=== PATIENT | female | born 1960 | race Caucasian/White ===

== ENCOUNTER 2017-08-16 10:02 | Emergency (ER) | payer OTHER ==
[~2017-08-16] VITALS: Ht 177.8 cm; Wt 83.0 kg
[2017-08-16 10:06] VITALS: TEMP 36.9; Ht 177.8 cm; Wt 83.0 kg
--- NOTE | 2017-08-16 10:17 | EMERGENCY ROOM VISIT NOTE ---
History Report prepared by Steveibmonet: Heena Riddle Under the Supervision of: Dr. Anthony Martinez M.D. First contact with patient: 10:11 Chief Complaint: URINARY SYMPTOMS Stated Complaint: BLADDER INFECTION Nursing Triage Summary: had a uti in may and today she woke up with sx of bladder pressure after voiding and then has blood in urine no dysuria and feels like she has to go every 10 min History of Present Illness The patient is a 57 year old female who presents to the Emergency Room with complaints of persistent urinary symptoms upon waking this morning. She complains of bladder pressure, hematuria and increased frequency. She denies any dysuria, back pain or fevers. She has experienced no abdominal pain or vaginal discharge. The patient notes she had a UTI back in May and her symptoms feel similar, but slightly different today. Source of History: patient Onset: earlier this morning Position: pelvis (urinary system) Timing: other (persistent) Associated Symptoms: No fevers, No abdominal pain, No back pain Review of Systems All systems have been listed, reviewed, and are negative other than those previously mentioned. Please see Additional Medical History Sheet. Past Medical & Surgical Medical Problems: (1) History of non-Hodgkin's lymphoma (2) Kidney stone (3) Migraine (4) Non-Hodgkin's lymphoma (5) Upper back pain Family History Diabetes mellitus FH: heart disease Social History Smoking Status: Current Every Day Smoker Alcohol Use: none Drug Use: none Marital Status: single Housing Status: lives with family Occupation Status: employed Current/Historical Medications Scheduled Nitrofurantoin Monohyd Macro (Macrobid), 100 MG PO BID Allergies Coded Allergies: Chlorpheniramine (Verified Allergy, Severe, lips swell, 08/16/17) Ibuprofen (Verified Allergy, Severe, lips swell, 08/16/17) Pseudoephedrine (Verified Allergy, Severe, lips swell, 08/16/17) Sulfa Drugs (Verified Allergy, Unknown, 'entire body swollen and red minus throat', 08/16/17) Physical Exam Vital Signs Date Time Temp Pulse Resp B/P (MAP) Pulse Ox O2 Delivery O2 Flow Rate FiO2 08/16/17 11:51 63 18 142/86 98 08/16/17 10:06 36.9 85 16 142/94 97 Physical Exam GENERAL: Patient awake, alert, oriented x 3. Patient follows commands. Patient does not appear toxic. Patient is adequately hydrated and well- nourished. SKIN: No erythema, pallor, cyanosis or rash HEENT: Normal head, pupils equal, reactive to light and accommodation. Oral cavity and posterior pharynx appear normal. Neck: Without adenopathy, no neck vein distention. ABDOMEN: Soft, nontender. No CVA tenderness. No masses, no rebound, no hepatomegaly or splenomegaly. NEUROLOGIC: Cranial nerves II-XII within normal limits. No gross motor sensory function deficits. Medical Decision & Procedures Laboratory Results Test 08/16/17 10:10 Urine Color BROWN Urine Appearance CLOUDY (CLEAR) Urine pH 5.5 (4.5-7.5) Urine Specific [place] 1.025 (1.000-1.030) Urine Protein 2+ (NEG) Urine Glucose (UA) NEG (NEG) Urine Ketones NEG (NEG) Urine Occult Blood 3+ (NEG) Urine Nitrite NEG (NEG) Urine Bilirubin NEG (NEG) Urine Urobilinogen NEG (NEG) Urine Leukocyte Esterase MODERATE (NEG) Urine RBC >30 /hpf (0-4) Urine WBC >30 /hpf (0-5) Urine Epithelial Cells 5-10 /lpf (0-5) Urine Bacteria 1+ (NEG) Laboratory results as stated above per my review. Medications Administered Medications (Trade) Dose Ordered Sig/Itzel Route Start Time Stop Time Status Last Admin Dose Admin Nitrofurantoin Macrocrystals (Macrobid Cap) 200 mg ONE ONCE PO 08/16/17 11:30 08/16/17 11:32 DC 08/16/17 11:47 200 MG Phenazopyridine HCl (Pyridium Tab) 200 mg NOW STAT PO 08/16/17 11:28 08/16/17 11:32 DC 08/16/17 11:47 200 MG Phenazopyridine HCl (Phenazopyridine HCl 200MG Home Pack) 1 homepack UD ONCE PO 08/16/17 11:30 08/16/17 11:32 DC 08/16/17 11:47 1 HOMEPACK ED Course 1011: Past medical records reviewed. The patient was evaluated in room B11B. A complete history and physical examination was performed. 1126: I reevaluated the patient. She is resting comfortably. I discussed her test results and discharge instructions and she verbalized complete understanding and agreement. 1128: Pyridium 200 mg PO. 1130: Phenazopyridine HCl 200 mg 1 homepack PO, Macrobid 200 mg PO. Medical Decision The differential diagnoses considered include UTI, kidney stone and pyelonephritis. 57-year-old female with urinary type symptoms similar to what she has experienced multiple times in the past. The patient denies any vaginal discharge. She has no flank pain. She has no fever or chills. Urinalysis is consistent with a UTI. The patient is allergic to sulfa. The patient was placed on Macrobid and Pyridium. Medication Reconcilliation Current Medication List: was personally reviewed by me Blood Pressure Screening Patient's blood pressure: Elevated blood pressure Blood pressure disposition: Referred to PCP Impression Primary Impression: Urinary tract infection Scribe Attestation The scribe's documentation has been prepared under my direction and personally reviewed by me in its entirety. I confirm that the note above accurately reflects all work, treatment, procedures, and medical decision making performed by me. Departure Information Dispostion Home / Self-Care Prescriptions Nitrofurantoin Monohyd Macro (MACROBID) 100 Mg Cap 100 MG PO BID, #18 CAP Prov: Anthony Martinez M.D. 08/16/17 Referrals Honorio Schmitt III, M.D. (PCP) Patient Instructions My [facility] Additional Instructions 1 Macrobid twice a day for 10 days. 1 Pyridium 3 times a day. Recheck the urine in 2 weeks.
[2017-08-16 10:24] LABS: MANUAL MICROSCOPIC REQUIRED? YES; URINE APPEARANCE CLOUDY (CLEAR); URINE COLOR BROWN; URINE NITRITE NEG (NEG); URINE PH 5.5 (4.5-7.5); URINE SPECIFIC GRAVITY 1.025 (1.000-1.030); UROBILINOGEN NEG (NEG)
[2017-08-16 10:27] LABS: REVIEW REQ? NO
[2017-08-16 10:30] LABS: URINE BILIRUBIN NEG (NEG)
[2017-08-16 10:33] LABS: URINE BACTERIA 1+ (NEG); URINE RBC >30 /hpf (0-4); URINE WBC >30 /hpf (0-5); ZZUR CULT IF INDIC CLEAN CATCH YES
[2017-08-16] MEDS ORDERED: PHENAZOPYRIDINE HCL 200 MG TAB PO STA (11:28)
[2017-08-16] MEDS ORDERED: PHENAZOPYRIDINE HOME PACK 200 MG VIAL PO ONE (11:30)
[2017-08-16] MEDS ORDERED: NITROFURANTOIN MONOHYDRATE 100 MG CAP PO ONE (11:30)
[2017-08-16] MEDS ORDERED: NITR1CAP16 PO (11:33)
[2017-08-16 11:51] VITALS: BP 142/86; PULSE 63; O2SAT 98
[2017-08-16] MEDS ORDERED: NITR-5 PO (17:20)
== END 2017-08-16 11:52 | disposition home or self-care (01) ==
LOC: C.EDB 10:04
DX: N39.0 Urinary tract infection, site not specified (principal); F17.200 Nicotine dependence, unspecified, uncomplicated; Z85.72 Personal history of non-Hodgkin lymphomas; Z83.3 Family history of diabetes mellitus; Z82.49 Family history of ischemic heart disease and other diseases of the circulatory system

== ENCOUNTER 2017-08-19 15:03 | Emergency (ER) | payer OTHER ==
[~2017-08-19] VITALS: Ht 177.8 cm; Wt 83.8 kg
[~2017-08-19 15:03] MED LIST: NITR-5 PO; NITR1CAP16 PO
[2017-08-19 15:07] VITALS: TEMP 36.7; Ht 177.8 cm; Wt 83.8 kg
--- NOTE | 2017-08-19 15:44 | EMERGENCY ROOM VISIT NOTE ---
History Report prepared by Domenic: Jasmeet Kim Under the Supervision of: Jan ZaldivarO. First contact with patient: 15:17 Chief Complaint: URINARY SYMPTOMS Stated Complaint: DX WITH BLADDER INFECTION 08/16, WORSENING SYMPTOM History of Present Illness The patient is a 57 year old female who presents to the Emergency Room with complaints of worsening bladder discomfort that began 3 day ago. She states that after she empties her bladder, her bladder feels "like it is going to burst ". She states that movement worsens the pain. She states associated symptoms of intermittent hematuria and constipation. She denies leg swelling, rashes, back pain, recent injuries, fevers, chills, and chest pain. Patient notes that she was started on antibiotics 3 days ago that did not resolve the symptoms. She denies having a history of bladder infections in the kidneys. She was put on Macrobid and Pyridium for current urinary problems. Source of History: patient Onset: 3 days ago Position: other (Bladder) Timing: worsening Modifying Factors (Worsening): movement Associated Symptoms: No fevers, No chills Note: She has symptoms of hematuria and constipation. She denies rashes, recent injuries, and leg swelling. Review of Systems See HPI for pertinent positives & negatives. A total of 10 systems reviewed and were otherwise negative. Past Medical & Surgical Medical Problems: (1) History of non-Hodgkin's lymphoma (2) Kidney stone (3) Migraine (4) Non-Hodgkin's lymphoma (5) Upper back pain Family History Diabetes mellitus FH: heart disease Social History Smoking Status: Current Every Day Smoker Alcohol Use: none Drug Use: none Marital Status: single Housing Status: lives with family Occupation Status: employed Current/Historical Medications Scheduled Cephalexin (Keflex), 1 CAP PO BID Nitrofurantoin Monohyd Macrocr (Macrobid), 100 MG PO BID Allergies Coded Allergies: Chlorpheniramine (Verified Allergy, Severe, lips swell, 08/19/17) Ibuprofen (Verified Allergy, Severe, lips swell, 08/19/17) Pseudoephedrine (Verified Allergy, Severe, lips swell, 08/19/17) Sulfa Drugs (Verified Allergy, Unknown, 'entire body swollen and red minus throat', 08/19/17) Physical Exam Vital Signs Date Time Temp Pulse Resp B/P (MAP) Pulse Ox O2 Delivery O2 Flow Rate FiO2 08/19/17 18:29 70 18 173/93 98 08/19/17 17:29 75 18 166/94 98 Room Air 08/19/17 15:07 36.7 93 16 130/92 98 Room Air Physical Exam GENERAL: alert, well appearing, well nourished, no distress, non-toxic EYE EXAM: normal conjunctiva, PERRL and EOM's grossly intact OROPHARYNX: no exudate, no erythema, lips, buccal mucosa, and tongue normal and mucous membranes are moist NECK: supple, no nuchal rigidity, no adenopathy, non-tender LUNGS: Clear to auscultation. Normal chest wall mechanics HEART: no murmurs, S1 normal and S2 normal ABDOMEN: abdomen soft, mild suprapubic tenderness, normo-active bowel sounds, no masses, no rebound or guarding. BACK: Back is symmetrical on inspection and there is no deformity, no midline tenderness, no CVA tenderness. SKIN: no rashes and no bruising UPPER EXTREMITIES: upper extremities are grossly normal. LOWER EXTREMITIES: No pitting edema. NEURO EXAM: Normal sensorium, cranial nerves II-XII grossly intact, normal speech, no gross weakness of arms, no gross weakness of legs. No drift. Finger to nose intact. Gross sensation intact. Medical Decision & Procedures ER Provider Diagnostic Interpretation: ABD/PELVIS IV CONTRAST ONLY CLINICAL HISTORY: 57 years-old Female presenting with lower abd pain, recent UTI, persistent urinary sx, possible history of lymphoma. TECHNIQUE: Multidetector CT of the abdomen and pelvis was performed after the administration of intravenous contrast. IV contrast: 92 mL of Optiray 320. A dose lowering technique was used consistent with the principles of ALARA (as low as reasonably achievable). COMPARISON: 03/25/2015. CT DOSE (mGy.cm): The estimated cumulative dose is 519.81 mGy.cm. 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 Lung bases: Minimal basilar opacities, likely atelectasis. Normal heart size. No pericardial or pleural effusion. Liver: Normal morphology. No liver lesion. Patent hepatic vasculature. Biliary: No intrahepatic or extrahepatic biliary ductal dilatation. Normal gallbladder. Pancreas: Normal. Spleen: Subcentimeter hypodensity in the spleen may represent a small hemangioma or hamartoma. Adrenal glands: Normal. Kidneys and ureters: Punctate nonobstructing calculus in the interpolar region of the left kidney (series 3 image 147). Several subcentimeter hypodensities noted in the right kidney likely simple cysts. No hydronephrosis. Apart from the presence of cysts, no abnormal parenchymal enhancement. No perinephric fat stranding or fluid collection. Ureters normal. Bladder: Mild circumferential bladder wall thickening. No perivesicular fat stranding. Pelvic organs: Uterus normal. Persistent linear soft tissue band emanating from the posterior aspect of the lower uterine segment to the anterior mid rectal wall may represent postsurgical change/adhesion or less likely a prior fistula. A corpus luteum may be present in the right ovary. Calcification noted in the left ovary. Bowel: Mild stool burden throughout normal caliber colon. The appendix is normal. No bowel obstruction. Peritoneal cavity: No free fluid or intraperitoneal gas. Lymph nodes: No enlarged lymph nodes in the abdomen or pelvis. Vasculature: Atherosclerosis of the normal caliber abdominal aorta. IVC patent. Abdominal wall: Normal. Musculoskeletal: Degenerative changes of the spine. IMPRESSION: 1. Mild circumferential bladder wall thickening could suggest cystitis. Correlate with urinalysis. No evidence of upper tract involvement or pyelonephritis. 2. No lymphadenopathy. Electronically signed by: Agapito Copeland M.D. 08/19/2017 5:31 PM Dictated Date/Time: 08/19/2017 5:14 PM Laboratory Results 08/19/17 15:40 Red Blood Count 4.31, Mean Corpuscular Volume 92.3, Mean Corpuscular Hemoglobin 31.1, Mean Corpuscular Hemoglobin Concent 33.7, Mean Platelet Volume 11.0, Neutrophils (%) (Auto) 69.8, Lymphocytes (%) (Auto) 18.4, Monocytes (%) (Auto) 8.6, Eosinophils (%) (Auto) 2.8, Basophils (%) (Auto) 0.1, Neutrophils # (Auto) 5.27, Lymphocytes # (Auto) 1.39, Monocytes # (Auto) 0.65, Eosinophils # (Auto) 0.21, Basophils # (Auto) 0.01 08/19/17 15:40 Test 08/19/17 15:40 08/19/17 15:50 White Blood Count 7.55 K/uL (4.8-10.8) Red Blood Count 4.31 M/uL (4.2-5.4) Hemoglobin 13.4 g/dL (12.0-16.0) Hematocrit 39.8 % (37-47) Mean Corpuscular Volume 92.3 fL (80-100) Mean Corpuscular Hemoglobin 31.1 pg (25-34) Mean Corpuscular Hemoglobin Concent 33.7 g/dl (32-36) Platelet Count 244 K/uL (130-400) Mean Platelet Volume 11.0 fL (7.4-10.4) Neutrophils (%) (Auto) 69.8 % Lymphocytes (%) (Auto) 18.4 % Monocytes (%) (Auto) 8.6 % Eosinophils (%) (Auto) 2.8 % Basophils (%) (Auto) 0.1 % Neutrophils # (Auto) 5.27 K/uL (1.4-6.5) Lymphocytes # (Auto) 1.39 K/uL (1.2-3.4) Monocytes # (Auto) 0.65 K/uL (0.11-0.59) Eosinophils # (Auto) 0.21 K/uL (0-0.5) Basophils # (Auto) 0.01 K/uL (0-0.2) RDW Standard Deviation 47.3 fL (36.4-46.3) RDW Coefficient of Variation 13.9 % (11.5-14.5) Immature Granulocyte % (Auto) 0.3 % Immature Granulocyte # (Auto) 0.02 K/uL (0.00-0.02) Anion Gap 5.0 mmol/L (3-11) Est Creatinine Clear Calc Drug Dose 112.5 ml/min Estimated GFR () 114.2 Estimated GFR (Non- 98.6 BUN/Creatinine Ratio 25.0 (10-20) Calcium Level 8.7 mg/dl (8.5-10.1) Total Bilirubin 0.3 mg/dl (0.2-1) Aspartate Amino Transf (AST/SGOT) 41 U/L (15-37) Alanine Aminotransferase (ALT/SGPT) 42 U/L (12-78) Alkaline Phosphatase 75 U/L (45-117) Total Protein 6.8 gm/dl (6.4-8.2) Albumin 3.6 gm/dl (3.4-5.0) Globulin 3.2 gm/dl (2.5-4.0) Albumin/Globulin Ratio 1.1 (0.9-2) Urine Color DK YELLOW Urine Appearance CLEAR (CLEAR) Urine pH 5.0 (4.5-7.5) Urine Specific [place] 1.022 (1.000-1.030) Urine Protein NEG (NEG) Urine Glucose (UA) NEG (NEG) Urine Ketones NEG (NEG) Urine Occult Blood 1+ (NEG) Urine Nitrite NEG (NEG) Urine Bilirubin NEG (NEG) Urine Urobilinogen NEG (NEG) Urine Leukocyte Esterase SMALL (NEG) Urine WBC (Auto) 10-30 /hpf (0-5) Urine RBC (Auto) 0-4 /hpf (0-4) Urine Hyaline Casts (Auto) 1-5 /lpf (0-5) Urine Epithelial Cells (Auto) >30 /lpf (0-5) Urine Bacteria (Auto) NEG (NEG) Urine Yeast (Auto) (NONE PRSENT) Date/Time Source Procedure Growth Status 08/19/17 15:50 Urine , Clean Catch Urine Culture - Final MORE THAN THREE TYPES OF ORGANISMS MS... Complete Laboratory results per my review. Medications Administered Medications (Trade) Dose Ordered Sig/Itzel Route Start Time Stop Time Status Last Admin Dose Admin Ceftriaxone Sodium (Rocephin Inj) 1 gm NOW STAT IV 08/19/17 17:36 08/19/17 17:37 DC 08/19/17 17:54 1 GM Phenazopyridine HCl (Phenazopyridine HCl 200MG Home Pack) 1 homepack UD ONCE PO 08/19/17 18:00 08/19/17 18:01 DC 08/19/17 18:00 1 HOMEPACK Ketorolac Tromethamine (Toradol Inj) 15 mg NOW STAT IV 08/19/17 17:46 08/19/17 17:48 DC 08/19/17 17:52 15 MG ED Course 1530: The patient was evaluated in room C9. A complete history and physical exam was performed. 1545: Ioversol 100ml IV Medical Decision Differential diagnosis: Etiologies such as renal colic, appendicitis, diverticulitis, mesenteric ischemia, aortic pathology, infections, inflammatory bowel disease, PUD, biliary pathology, UTI, as well as others were entertained. Patient well-appearing here despite complaints, vital signs stable. No evidence of obstructive uropathy, renal dysfunction, pyelonephritis, doubt vascular etiology. No evidence of concurrent GI pathology. Discussed with patient changing antibiotics, symptoms watch return for, follow-up with family doctor, use of Pyridium, continued hydration, she verbalized understanding was agreeable with plan. Medication Reconcilliation Current Medication List: was personally reviewed by me Blood Pressure Screening Patient's blood pressure: Normal blood pressure Blood pressure disposition: Did not require urgent referral Impression Primary Impression: Dysuria Additional Impressions: Lower abdominal pain Hematuria Scribe Attestation The scribe's documentation has been prepared under my direction and personally reviewed by me in its entirety. I confirm that the note above accurately reflects all work, treatment, procedures, and medical decision making performed by me. Departure Information Dispostion Home / Self-Care Prescriptions Cephalexin (KEFLEX) 500 Mg Cap 1 CAP PO BID for 7 Days, #14 CAP Prov: Blossom Ortiz, DO 08/19/17 Referrals Honorio Schmitt III, M.D. (PCP) Patient Instructions My [facility] Additional Instructions Please follow up with your family doctor. Please stop taking the Macrobid and begin taking the other antibiotic as prescribed. You may continue using the Pyridium as needed. Please make sure you're drinking plenty of water. Please follow-up with your BOX FABRICATOR as needed regarding the ovarian cyst and possible postop changes related to your prior history of endometriosis. These make sure you're getting plenty of fiber in your diet to help limit any constipation issues. If you develop any worsening abdominal pain, develop back pain, fevers or chills, vomiting, dizziness, or unable to urinate, or you've any other new concerns, please return the emergency room. Problem Qualifiers Additional Impressions: Hematuria Hematuria type: unspecified type Qualified Codes: R31.9 - Hematuria, unspecified
[2017-08-19] MEDS ORDERED: OPTIRAY 320 IV PRN (15:45)
[2017-08-19 15:58] LABS: BASO % 0.1 %; BASO ABS # 0.01 K/uL (0-0.2); EOS % 2.8 %; EOS ABS # 0.21 K/uL (0-0.5); HEMATOCRIT 39.8 % (37-47); HEMOGLOBIN 13.4 g/dL (12.0-16.0); IG# 0.02 K/uL (0.00-0.02); LYMPH % 18.4 %; LYMPH ABS # 1.39 K/uL (1.2-3.4); MEAN CELL VOLUME 92.3 fL (80-100); MEAN CORPUSCULAR HEMOGLOBIN 31.1 pg (25-34); MEAN CORPUSCULAR HGB CONC 33.7 g/dl (32-36); MONO % 8.6 %; MONO ABS # 0.65 K/uL (0.11-0.59); NEUT % 69.8 %; NEUT ABS # 5.27 K/uL (1.4-6.5); PLATELET COUNT 244 K/uL (130-400); RED CELL DISTRIBUTION WIDTH CV 13.9 % (11.5-14.5); RED CELL DISTRIBUTION WIDTH SD 47.3 fL (36.4-46.3); WHITE BLOOD COUNT 7.55 K/uL (4.8-10.8)
[2017-08-19 16:20] LABS: ALBUMIN 3.6 gm/dl (3.4-5.0); CALCIUM 8.7 mg/dl (8.5-10.1); CREATININE 0.65 mg/dl (0.60-1.20); POTASSIUM 3.8 mmol/L (3.5-5.1)
[2017-08-19 16:22] LABS: TOTAL PROTEIN 6.8 gm/dl (6.4-8.2)
--- NOTE | 2017-08-19 17:33 | DIAGNOSTIC IMAGING REPORT ---
ABD/PELVIS IV CONTRAST ONLY CLINICAL HISTORY: 57 years-old Female presenting with lower abd pain, recent UTI, persistent urinary sx, possible history of lymphoma. TECHNIQUE: Multidetector CT of the abdomen and pelvis was performed after the administration of intravenous contrast. IV contrast: 92 mL of Optiray 320. A dose lowering technique was used consistent with the principles of ALARA (as low as reasonably achievable). COMPARISON: 03/25/2015. CT DOSE (mGy.cm): The estimated cumulative dose is 519.81 mGy.cm. 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 Lung bases: Minimal basilar opacities, likely atelectasis. Normal heart size. No pericardial or pleural effusion. Liver: Normal morphology. No liver lesion. Patent hepatic vasculature. Biliary: No intrahepatic or extrahepatic biliary ductal dilatation. Normal gallbladder. Pancreas: Normal. Spleen: Subcentimeter hypodensity in the spleen may represent a small hemangioma or hamartoma. Adrenal glands: Normal. Kidneys and ureters: Punctate nonobstructing calculus in the interpolar region of the left kidney (series 3 image 147). Several subcentimeter hypodensities noted in the right kidney likely simple cysts. No hydronephrosis. Apart from the presence of cysts, no abnormal parenchymal enhancement. No perinephric fat stranding or fluid collection. Ureters normal. Bladder: Mild circumferential bladder wall thickening. No perivesicular fat stranding. Pelvic organs: Uterus normal. Persistent linear soft tissue band emanating from the posterior aspect of the lower uterine segment to the anterior mid rectal wall may represent postsurgical change/adhesion or less likely a prior fistula. A corpus luteum may be present in the right ovary. Calcification noted in the left ovary. Bowel: Mild stool burden throughout normal caliber colon. The appendix is normal. No bowel obstruction. Peritoneal cavity: No free fluid or intraperitoneal gas. Lymph nodes: No enlarged lymph nodes in the abdomen or pelvis. Vasculature: Atherosclerosis of the normal caliber abdominal aorta. IVC patent. Abdominal wall: Normal. Musculoskeletal: Degenerative changes of the spine. IMPRESSION: 1. Mild circumferential bladder wall thickening could suggest cystitis. Correlate with urinalysis. No evidence of upper tract involvement or pyelonephritis. 2. No lymphadenopathy. Electronically signed by: Agapito Copeland M.D. 08/19/2017 5:31 PM Dictated Date/Time: 08/19/2017 5:14 PM
[2017-08-19] MEDS ORDERED: CEFTRIAXONE SOD INJ 1 GM ADDVIAL IV STA (17:36)
[2017-08-19] MEDS ORDERED: KETOROLAC TROMETHAMINE 30 MG/ML VIAL IV STA (17:46)
[2017-08-19] MEDS ORDERED: CEPH-571 PO (17:57)
[2017-08-19] MEDS ORDERED: PHENAZOPYRIDINE HOME PACK 200 MG VIAL PO ONE (18:00)
[2017-08-19 18:29] VITALS: BP 173/93; PULSE 70; O2SAT 98
== END 2017-08-19 18:31 | disposition home or self-care (01) ==
LOC: C.EDB 15:04 → C.EDC 18:31
DX: R30.0 Dysuria (principal); R10.9 Unspecified abdominal pain; R31.9 Hematuria, unspecified; Z83.3 Family history of diabetes mellitus; Z82.49 Family history of ischemic heart disease and other diseases of the circulatory system; F17.200 Nicotine dependence, unspecified, uncomplicated

== ENCOUNTER 2020-05-27 09:42 | Observation (INO) ==
[2020-05-27] MEDS ORDERED: SODIUM CHLORIDE 0.9% 1000ML 1,000 ML IV ONE (10:12)
--- NOTE | 2020-05-27 10:24 | Emergency Department Note ---
Impression & Plan Appendicitis, Lower abdominal pain, Decreased appetite ED Provider Note NAME: FERMÍN ROY AGE: 59 SEX: F ARRIVES VIA: Walk-In INFORMANT: Patient, ED PROVIDER(S): Alex Gates MD CHIEF COMPLAINT: Abdominal pain PLAN: Disposition: Admit MEDICAL DECISION MAKING: The patient is a pleasant 59-year-old woman with a past medical history of non- Hodgkin's lymphoma, 1 year in remission who presents emergency department for evaluation of low abdominal pain in setting being seen in the emergency department yesterday for back pain with CT performed that demonstrated dilated fluid-filled appendix that was suspicious for appendicitis however at that time the patient's exam was not convincing of appendicitis and so recommendation was for admission for IV antibiotics however the patient did not want to be admitted and needed to take care of things at home and so was discharged with oral antibiotics with plan for follow-up but she reports calling the office and unable to get through and so presents emergency department and relates that she would be agreeable for admission if that is the recommendation. Since being discharged yesterday she reports mild lower abdominal discomfort and bloating but denies any severe pain. She denies any nausea, vomiting, diarrhea, urinary symptoms. She reports that she had "looked up the symptoms of asymptomatic appendicitis and feels she may have had these over the past couple of weeks with generalized malaise and decreased appetite. On arrival she is no acute distress, afebrile stable vital signs. On exam the patient has mild lower abdominal discomfort but no discrete tenderness in the right lower quadrant. Records ordered and patient's presentation was reviewed with general surgery PAChan Cruz, Mckayla Snyder, who evaluated the patient at the bedside and decision was made to proceed with admission for surgery. 2 g of cefoxitin were ordered per general surgery request. Additionally rapid COVID-19 test was performed and was negative. WBC, H/H complaints within normal limits. Chemistry without acidosis. Electrolytes and LFTs unremarkable. Lipase within normal limits. Admitted to the OR. Triage Nursing notes reviewed and agree them. Prior medical records reviewed Vital Signs: reviewed and remarkable for no significant abnormalities Differential diagnosis: Appendicitis, ovarian cyst, ovarian torsion, ectopic , TOA, PID, infections, diverticulitis, UTI, obstruction, mesenteric ischemia, aortic pathology, inflammatory bowel disease, renal colic, PUD, pancreatitis, biliary pathology, hernia, volvulus, constipation, as well as other pathologies. ER treatment provided: See below. Diagnostics interpreted by me: Cardiac Monitoring: An order for continuous cardiac monitoring was placed and demonstrated An order for continuous cardiac monitoring was placed and demonstrated sinus bradycardia, 54 bpm, no ectopy. Laboratory studies: See below Consultation(s): general surgery, Mckayla Snyder PAC, with Dr. Vogt. HPI: The patient is a pleasant 59-year-old woman with a past medical history of non-Hodgkin's lymphoma, 1 year in remission who presents emergency department for evaluation of low abdominal pain in setting being seen in the emergency department yesterday for back pain with CT performed that demonstrated dilated fluid-filled appendix that was suspicious for appendicitis however at that time the patient's exam was not convincing of appendicitis and so recommendation was for admission for IV antibiotics however the patient did not want to be admitted and needed to take care of things at home and so was discharged with oral antibiotics with plan for follow-up but she reports calling the office and unable to get through and so presents emergency department and relates that she would be agreeable for admission if that is the recommendation. Since being discharged yesterday she reports mild lower abdominal discomfort and bloating but denies any severe pain. She denies any nausea, vomiting, diarrhea, urinary symptoms. She reports that she had "looked up the symptoms of asymptomatic appendicitis and feels she may have had these over the past couple of weeks with generalized malaise and decreased appetite. ROS: See above HPI for pertinent positives & negatives. A total of 10 systems reviewed and were otherwise negative. PAST MEDICAL HISTORY:See Below PAST SURGICAL HISTORY:See Below FAMILY HISTORY:See Below SOCIAL HISTORY:See Below HOME MEDICATIONS:See Below ALLERGIES:See Below VITALS:See Below PHYSICAL EXAMINATION: GENERAL: Awake, alert, well-appearing, in no distress HENT: Normocephalic, atraumatic. Oropharynx with dry mucous membranes and otherwise unremarkable. EYES: Normal conjunctiva. Sclera non-icteric. NECK: Supple. No nuchal rigidity. FROM. No JVD. RESPIRATORY: Clear to auscultation. CARDIAC: Regular rate, normal rhythm. Extremities warm and well perfused. Pulses equal. ABDOMEN: Soft, non-distended. Mild lower abdominal discomfort without discrete tenderness to palpation. No rebound or guarding. No masses. RECTAL: Deferred. MUSCULOSKELETAL: Chest examination reveals no tenderness. The back is symmetrical on inspection without obvious abnormality. There is no CVA tenderness to palpation. No joint edema. LOWER EXTREMITIES: Calves are equal size bilaterally and non-tender. No edema. No discoloration. NEURO: Normal sensorium. No sensory or motor deficits noted. SKIN: No rash or jaundice noted. Alex Gates MD Past Med/Surg History Medical History Hypertension not treated Kidney stone Lymphadenopathy Non-Hodgkin's lymphoma (09/19/12) Smoker Social History Smoking Status: Current every day smoker Tobacco Type: Cigarettes Preferred Language: Palauan Feels Safe at Home: Yes Allergies Allergies Allergy/AdvReac Type Severity Reaction Status Date / Time chlorpheniramine Allergy Severe lips swell Verified 05/27/20 12:00 Sulfa (Sulfonamide Allergy Unknown 'entire Verified 05/27/20 12:00 Antibiotics) body swollen and red minus throat' meperidine [From Demerol] AdvReac Severe sick Unverified 05/27/20 12:00 Home Meds Previous Rx's Medication Instructions Recorded amoxicillin-pot clavulanate 1 tab PO BID #14 tab 05/26/20 [Augmentin] Results & Data (ED) Vital Signs Vital Signs - 24 hr 05/27/20 09:56 05/27/20 11:02 05/27/20 11:49 Temperature 36.8 C Temperature Source Oral Pulse Rate 83 Pulse Rate [Left Finger] Pulse Rhythm [Left Finger] Pulse Strength [Left Finger] Respiratory Rate 18 Respiratory Effort / Characteristics Non-Labored Spontaneous Respiratory Depth Normal Respiratory Pattern Regular Blood Pressure 174/105 H Blood Pressure [Right Arm] Blood Pressure Mean 128 Blood Pressure Mean [Right Arm] Blood Pressure Position Sitting Blood Pressure Position [Right Arm] Pulse Oximetry 97 95 Oxygen Delivery Method Room Air Room Air Room Air Sepsis Recent Fever Within 48 Hours No Sepsis New/Unexplained Change in Mental Status N/A Sepsis Action Taken by Nursing No Action Required 05/27/20 12:02 Temperature 36.8 C Temperature Source Oral Pulse Rate Pulse Rate [Left Finger] 60 Pulse Rhythm [Left Finger] Regular Pulse Strength [Left Finger] Normal Respiratory Rate 20 Respiratory Effort / Characteristics Non-Labored Spontaneous Respiratory Depth Normal Respiratory Pattern Regular Blood Pressure Blood Pressure [Right Arm] 186/100 H Blood Pressure Mean Blood Pressure Mean [Right Arm] 128 Blood Pressure Position Blood Pressure Position [Right Arm] Sitting Pulse Oximetry 99 Oxygen Delivery Method Room Air Sepsis Recent Fever Within 48 Hours Sepsis New/Unexplained Change in Mental Status Sepsis Action Taken by Nursing Laboratory Data Attestation: I reviewed the patient's lab results. Result diagrams: 05/27/20 11:00 05/27/20 11:00 Lab Results 05/27/20 05/27/20 05/27/20 Range/Units 11:00 11:00 11:24 WBC 6.87 (4.8-10.8) K/uL RBC 4.77 (4.2-5.4) M/uL Hgb 14.5 (12.0-16.0) g/dL Hct 43.5 (37-47) % MCV 91.2 (80-100) fL MCH 30.4 (25-34) pg MCHC 33.3 (32-36) g/dL RDW Std Deviation 46.6 H (36.4-46.3) fL RDW Coeff of Christal 13.9 (11.5-14.5) % Plt Count 259 (130-400) K/uL MPV 10.2 (7.4-10.4) fL Immature Gran % (Auto) 0.1 % Neut % (Auto) 71.9 % Lymph % (Auto) 19.7 % [place] % (Auto) 6.0 % Eos % (Auto) 2.2 % Baso % (Auto) 0.1 % Neut # (Auto) 4.94 (1.4-6.5) K/uL Lymph # (Auto) 1.35 (1.2-3.4) K/uL [place] # (Auto) 0.41 (0.11-0.59) K/uL Eos # (Auto) 0.15 (0-0.5) K/uL Baso # (Auto) 0.01 (0-0.2) K/uL Immature Gran # (Auto) 0.01 (0.00-0.02) K/uL Sodium 142 (136-145) mmol/L Potassium 4.0 (3.5-5.1) mmol/L Chloride 111 H (98-107) mmol/L Carbon Dioxide 28 (21-32) mmol/L Anion Gap 3.0 (3-11) BUN 15 (7-18) mg/dl Creatinine 0.67 (0.6-1.2) mg/dl Est Cr Clr Drug Dosing 106.2 ml/min Est GFR ( Amer) 111.5 Est GFR (Non-Af Amer) 96.2 BUN/Creatinine Ratio 22.4 H (10-20) Glucose 86 (70-99) mg/dl Calcium 9.1 (8.5-10.1) mg/dl Total Bilirubin 0.4 (0.2-1) mg/dl AST 13 L (15-37) U/L ALT 12 (12-78) U/L Alkaline Phosphatase 77 (45-117) U/L Total Protein 6.9 (6.4-8.2) gm/dl Albumin 3.4 (3.4-5.0) gm/dl Globulin 3.5 (2.5-4.0) gm/dl Albumin/Globulin Ratio 1.0 (0.9-2) Lipase 88 (73-393) U/L COVID-19 Eval [facility] SARS-CoV-2, RNA, NAAT (NEGATIVE) 05/27/20 Range/Units 11:24 WBC (4.8-10.8) K/uL RBC (4.2-5.4) M/uL Hgb (12.0-16.0) g/dL Hct (37-47) % MCV (80-100) fL MCH (25-34) pg MCHC (32-36) g/dL RDW Std Deviation (36.4-46.3) fL RDW Coeff of Christal (11.5-14.5) % Plt Count (130-400) K/uL MPV (7.4-10.4) fL Immature Gran % (Auto) % Neut % (Auto) % Lymph % (Auto) % [place] % (Auto) % Eos % (Auto) % Baso % (Auto) % Neut # (Auto) (1.4-6.5) K/uL Lymph # (Auto) (1.2-3.4) K/uL [place] # (Auto) (0.11-0.59) K/uL Eos # (Auto) (0-0.5) K/uL Baso # (Auto) (0-0.2) K/uL Immature Gran # (Auto) (0.00-0.02) K/uL Sodium (136-145) mmol/L Potassium (3.5-5.1) mmol/L Chloride (98-107) mmol/L Carbon Dioxide (21-32) mmol/L Anion Gap (3-11) BUN (7-18) mg/dl Creatinine (0.6-1.2) mg/dl Est Cr Clr Drug Dosing ml/min Est GFR ( Amer) Est GFR (Non-Af Amer) BUN/Creatinine Ratio (10-20) Glucose (70-99) mg/dl Calcium (8.5-10.1) mg/dl Total Bilirubin (0.2-1) mg/dl AST (15-37) U/L ALT (12-78) U/L Alkaline Phosphatase (45-117) U/L Total Protein (6.4-8.2) gm/dl Albumin (3.4-5.0) gm/dl Globulin (2.5-4.0) gm/dl Albumin/Globulin Ratio (0.9-2) Lipase (73-393) U/L COVID-19 Eval Order SARS-CoV-2, RNA, NAAT NEGATIVE (NEGATIVE) Administered Medications Sodium Chloride (Nss 1000ml) 1,000 mls @ 50 mls/hr IV .Q20H ALONSO Stop: 06/26/20 15:14 Last Admin: 05/27/20 15:24 Dose: 50 mls/hr Documented by: [id number] Discontinued Medications Acetaminophen (Acetaminophen 1000 Mg/100 Ml Iv) Confirm Administered Dose 1,000 mg IV .STK-MED ONE Stop: 05/27/20 13:42 Last Admin: 05/27/20 15:04 Dose: Not Given Documented by: [id number] Bupivacaine HCl (Bupivacaine 0.5 % 5 Mg/1 Ml Mpf 30ml Vial) Confirm Administered Dose 30 ml .ROUTE .STK-MED ONE Stop: 05/27/20 12:04 Last Admin: 05/27/20 12:50 Dose: 10 ml Documented by: [id number] Fentanyl Citrate (Fentanyl Citrate 100 Mcg/2 Ml Vial) 25 mcg IV Q5M PRN PRN Reason: PACU Use Only-Pain Stop: 05/27/20 19:16 Last Admin: 05/27/20 13:56 Dose: 25 mcg Documented by: [id number] Sodium Chloride (Nss 1000ml) 1,000 mls @ 999 mls/hr IV .Q1H1M ONE Stop: 05/27/20 11:12 Last Infusion: 05/27/20 15:04 Dose: 0 mls/hr Documented by: [id number] Admin: 05/27/20 11:14 Dose: 999 mls/hr Documented by: [id number] Cefoxitin Sodium (Mefoxin) 2,000 mg in 60 mls @ 100 mls/hr IV NOW STA Stop: 05/27/20 11:37 Last Infusion: 05/27/20 15:04 Dose: 0 mls/hr Documented by: [id number] Admin: 05/27/20 11:14 Dose: 100 mls/hr Documented by: [id number] Acetaminophen (Ofirmev) 1,000 mg in 100 mls @ 400 mls/hr IV NOW ONE; Protocol Stop: 05/27/20 13:34 Last Infusion: 05/27/20 13:58 Dose: 0 mls/hr Documented by: [id number] Admin: 05/27/20 13:43 Dose: 400 mls/hr Documented by: [id number] Ondansetron HCl (Ondansetron Inj 2 Mg/Ml 2 Ml Vial) 4 mg IV ONCE PRN PRN Reason: PACU Use Only-Nausea/Vomiting Stop: 05/27/20 19:16 Last Admin: 05/27/20 13:56 Dose: 4 mg Documented by: [id number] Discharge Plan Visit Data Chief Complaint: Abdominal Pain Stated Complaint: ABD PAIN ED Provider: Alex Gates Discharge Problem: Appendicitis, Lower abdominal pain, Decreased appetite Discharge Instructions Interventions: ED Discharge Assessment Last Done: 05/27/20 11:49 Discharge Problem: Appendicitis Qualifiers: Appendicitis type: acute appendicitis Acute appendicitis type: unspecified acute appendicitis type Qualified Code(s): K35.80 - Unspecified acute appendicitis
--- NOTE | 2020-05-27 10:56 | History & Physical Report ---
Date of Service May 27, 2020 Assessment & Plan (1) Appendicitis: Admission and Anticipated Discharge Date Admission Date: This is a 59y F with a PMH of non-hodgkins lymphoma who returns to the ED today after evaluation for back pain yesterday with a CT scan showed concern for appendicitis. She returns today after having trouble getting ahold of the office and is endorsing more abdominal bloating, twinges of pain in the RLQ, and fatigue. At this time we will decide to take the patient to the OR for removal of her appendix. patient is agreeable with the plan. Covid testing to be ordered pre-op. She will remain NPO and be started on pre-op abx. Dr. Vogt has obtained consent. History of Present Illness Primary Care Provider: Honorio Schmitt MD This is a 59y F with a PMH of non-hodgkins lymphoma who returns to the ED today after evaluation for back pain yesterday with a CT scan showed concern for appendicitis. Yesterday in the ER the patient's abdominal exam was benign and had no clear symptoms that correlated with appendicitis at the time. She was provided options and requested to be discharged from the ED on a course of antibiotics with plans to call our office today for an update. The patient states she had a very difficult time getting ahold of someone in the outpatient office, so she decided to return to the ED. She reports her back pain has completely resolved, but she has noticed some more fatigue, bloating, and some twinges of pain in her abdomen since discharge. She last ate yesterday around 9:30pm. She denies any nausea/vomiting, fevers/chills, or change in bowel habits. Allergies Allergy/AdvReac Type Severity Reaction Status Date / Time chlorpheniramine Allergy Severe lips swell Verified 05/27/20 10:34 Sulfa (Sulfonamide Allergy Unknown 'entire Verified 05/27/20 10:34 Antibiotics) body swollen and red minus throat' meperidine [From Demerol] AdvReac Severe sick Unverified 05/27/20 10:34 Home Medications Home Medications Medication Instructions Recorded Confirmed Type amoxicillin-pot clavulanate 1 tab PO BID #14 tab 05/26/20 05/27/20 Rx [Augmentin] Past Med/Surg History Medical History Kidney stone Lymphadenopathy Non-Hodgkin's lymphoma (09/19/12) Social History Smoking Status: Current every day smoker Tobacco Type: Cigarettes Preferred Language: Welsh Feels Safe at Home: Yes Review of Systems Constitutional: + fatigue; no fever and no chills Respiratory: no dyspnea Cardiovascular: no chest pain Gastrointestinal: + abdominal pain (twinges of abdominal pain in RLQ) and + bloating; no nausea, no vomiting and no change in bowel habits +flatulance Physical Exam Physical Exam: awake/alert Respiratory: normal respiratory effort Gastrointestinal (Abdomen): Inspection/Auscultation: abdomen not distended Percussion/Palpation: + abdomen tender (some tenderness in RLQ to deep palpation) and abdomen soft Results & Data Results & Data ([facility]) Vital Signs (Past 12 Hours) Vital Signs Temp Pulse Resp BP Pulse Ox 05/27/20 09:56 36.8 C 83 18 174/[address] SCAN OF THE ABDOMEN AND PELVIS WITHOUT CONTRAST CLINICAL HISTORY: Right flank pain COMPARISON STUDY: 08/11/2017 TECHNIQUE: CT scan of the abdomen and pelvis was performed from the lung bases to the proximal femurs. Images are reviewed in the axial, sagittal, and coronal planes. IV contrast was not administered for this examination. A dose lowering technique was utilized adhering to the principles of ALARA. CT DOSE: 520.95 mGy.cm FINDINGS: Lower chest: The heart is normal in size and configuration, without pericardial effusion. The lung bases and pleural spaces are clear. Liver: The unenhanced liver is normal in size, contour, and attenuation. There is no intrahepatic biliary ductal dilatation. Gallbladder: Unremarkable. Spleen: Normal in size and attenuation. Pancreas: Unremarkable. Adrenal glands: Unremarkable. Kidneys: There are tiny nonobstructing left renal calculi. No right renal calculi are visualized. No ureteral or bladder calculi are visualized. Bowel: There are no transition zones to indicate bowel obstruction. There is no evidence of acute diverticulitis. There is a dilated fluid-filled appendix, suspicious for acute appendicitis. Peritoneum: There is no intraperitoneal free air or abdominal ascites. Vasculature: The abdominal aorta is normal in course and caliber. Adenopathy: None. Pelvic viscera: Ovarian calcifications are suspected. Skeletal structures: No destructive osseous lesions are seen. IMPRESSION: 1. Dilated fluid-filled appendix suspicious for acute appendicitis. Surgical consultation recommended 2. Punctate nonobstructing left renal calculi 3. No evidence of bowel obstruction. No evidence of free air 4. Stable ovarian calcifications ACT 112: Negative or not required by law. Electronically signed by: David Hdz M.D. 05/26/2020 9:59 AM PG Care Time/CCT Total # of Minutes Spent Total Time Spent with Patient: Total time spent is greater than 50% in coordination of care (as documented) at patient's floor/unit and/or counseling patient: Coding Level of Care Code 33004 Initial Inpt Care Lvl 2 Diagnoses Appendicitis K37
[2020-05-27] MEDS ORDERED: cefOXitin 2,000 MG/60 ML BAG IV STA (11:02)
[2020-05-27 11:11] LABS: Basophils # (auto) 0.01 K/uL (0-0.2); Basophils % (auto) 0.1 %; Eosinophils # (auto) 0.15 K/uL (0-0.5); Eosinophils % (auto) 2.2 %; Hematocrit (blood only) 43.5 % (37-47); Hemoglobin 14.5 g/dL (12.0-16.0); Immature Granulocytes # (auto) 0.01 K/uL (0.00-0.02); Immature Granulocytes % (auto) 0.1 %; Lymphocytes # (auto) 1.35 K/uL (1.2-3.4); Lymphocytes % (auto) 19.7 %; Mean Corpuscular Hemoglobin 30.4 pg (25-34); Mean Corpuscular Hgb Conc 33.3 g/dL (32-36); Mean Corpuscular Volume 91.2 fL (80-100); Mean Platelet Volume 10.2 fL (7.4-10.4); Monocytes # (auto) 0.41 K/uL (0.11-0.59); Neutrophils # (auto) 4.94 K/uL (1.4-6.5); Neutrophils % (auto) 71.9 %; Platelet Count 259 K/uL (130-400); RDW Coefficient of Variation 13.9 % (11.5-14.5); RDW Standard Deviation 46.6 fL (36.4-46.3); Red Blood Count 4.77 M/uL (4.2-5.4); White Blood Count 6.87 K/uL (4.8-10.8)
[2020-05-27] MEDS ORDERED: LABETALOL HCL IV 5 MG/ML 20ML IV PRN (11:16)
[2020-05-27] MEDS ORDERED: fentaNYL citrate 100 MCG/2 ML VIAL IV PRN (11:16)
[2020-05-27] MEDS ORDERED: ePHEDrine sulfate 50 MG/ML AMP IV PRN (11:16)
[2020-05-27] MEDS ORDERED: ATROPINE SULFATE 0.1 MG/ML 10ML SYR IV PRN (11:16)
[2020-05-27] MEDS ORDERED: PHENYLEPHRINE 100MCG/ML 5ML SYR IV PRN (11:16)
[2020-05-27] MEDS ORDERED: ONDANSETRON INJ 2 MG/ML 2 ML VIAL IV PRN ×2 (11:16→14:46)
[2020-05-27] MEDS ORDERED: HYDROmorphone INJ 1 MG/ML SYRINGE IV PRN ×2 (11:16→14:46)
[2020-05-27 11:28] LABS: Albumin Level 3.4 gm/dl (3.4-5.0); BUN Creatinine Ratio 22.4 (10-20); Calcium 9.1 mg/dl (8.5-10.1); Creatinine Clr Calc Pharmacy 106.2 ml/min; Est GFR (African American) 111.5; Est GFR (Non-African American) 96.2
[2020-05-27 11:30] LABS: Bilirubin,Total 0.4 mg/dl (0.2-1); Globulin 3.5 gm/dl (2.5-4.0); Total Protein 6.9 gm/dl (6.4-8.2)
[2020-05-27] MEDS ORDERED: PROPOFOL IV EMULSION 10 MG/ML 20 ML VIAL IV ONE (11:44)
[2020-05-27] MEDS ORDERED: LIDOCAINE HCL 2% 2 ML VIAL/AMP(20MG/ML) INFIL ONE (11:44)
[2020-05-27] MEDS ORDERED: DEXAMETHASONE SOD INJ 4 MG/ML VIAL ONE (11:44)
[2020-05-27] MEDS ORDERED: GLYCOPYRROLATE 0.2 MG/ML VIAL ONE ×2 (11:44→13:09)
[2020-05-27] MEDS ORDERED: fentaNYL citrate 100 MCG/2 ML VIAL ONE (11:44)
[2020-05-27] MEDS ORDERED: MIDAZOLAM HCL 1 MG/ML 2ML VIAL ONE (11:44)
[2020-05-27] MEDS ORDERED: ONDANSETRON INJ 2 MG/ML 2 ML VIAL ONE (11:44)
[2020-05-27] MEDS ORDERED: NEOSTIGMINE METHYLSULFATE 5 MG/5 ML SYR ONE (11:44)
[2020-05-27] MEDS ORDERED: ROCURONIUM BROMIDE 10 MG/ML 5 ML VIAL IV ONE (11:50)
[2020-05-27] MEDS ORDERED: LARYING-O-JET KIT (LTA) ONE (11:50)
[2020-05-27] MEDS ORDERED: BUPIVACAINE 0.5 % 5 MG/1 ML MPF 30ML VIAL ONE (12:03)
--- NOTE | 2020-05-27 12:15 | Anesthesiology Consultation ---
Date of Service May 27, 2020 Covid 19 negative today. The patient has untreated hypertension. She states that her blood pressure has been elevated in the past but not as high as it is now. I explained that it is dangerous for her to walk around with elevated blood pressure due to the increased risk of stroke, heart attack, and kidney damage. The patient was counseled to follow up with a primary care provider for blood pressure treatment. Assessment & Plan (1) Encounter for pre-operative examination: Chart Review Chart Review: Acceptable Risk for Surgery and Patient NOT seen in Pre Admission Testing Consults Requested none History Surgery Operation Date: 05/27/20 07:50 Proposed Procedures p Laparoscopic Appendectomy - Dmitry Vogt MD, FACS Height/Weight Height: 5 ft 10 in Weight: 83.3 kg Allergies Allergy/AdvReac Type Severity Reaction Status Date / Time chlorpheniramine Allergy Severe lips swell Verified 05/27/20 12:00 Sulfa (Sulfonamide Allergy Unknown 'entire Verified 05/27/20 12:00 Antibiotics) body swollen and red minus throat' meperidine [From Demerol] AdvReac Severe sick Unverified 05/27/20 12:00 Medications Home Medications Medication Instructions Recorded Confirmed Last Taken amoxicillin-pot clavulanate 1 tab PO BID #14 tab 05/26/20 05/27/20 05/27/20 06:00 [Augmentin] NPO Date Last Intake of Fluids: 05/27/20 Time Last Intake of Fluids: 06:30 Last Intake of Fluids Comment: sip milk with med Date Last Intake of Solids: 05/26/20 Time Last Intake of Solids: 21:30 Past Medical History Medical History Hypertension not treated Kidney stone Lymphadenopathy Non-Hodgkin's lymphoma (09/19/12) Smoker Social History Smoking Status: Current every day smoker Physical Exam Vital Signs Last Vital Signs Temp 36.8 C 05/27/20 12:02 Pulse 60 05/27/20 12:02 Resp 20 05/27/20 12:02 BP 186/100 H 05/27/20 12:02 Pulse Ox 99 05/27/20 12:02 Testing Laboratory Results 05/27/20 11:00 05/27/20 11:00 Electrocardiogram Date: 05/27/20 Findings: + LVH, + NSST changes and + SB @ (56)
[2020-05-27] MEDS ORDERED: PHENYLEPHRINE 100MCG/ML 5ML SYR ONE (12:55)
[2020-05-27] MEDS ORDERED: ePHEDrine sulfate 50 MG/ML SYR ONE (12:55)
[2020-05-27] MEDS ORDERED: ACETAMINOPHEN 1,000 MG/100 ML VIAL IV ONE (13:20)
--- NOTE | 2020-05-27 13:20 | Post Operative Brief Note ---
PG Immediate Post Op with CF Date of Surgery May 27, 2020 Pre & Post Diagnosis Operation Date: 05/27/20 07:50 Pre-Op Diagnosis: appendicitis Post-Op Diagnosis: appendicitis, possible mucocele I identified the patient and participated in the time-out.: Yes Procedure Operation Date: 05/27/20 07:50 Actual Procedures p Laparoscopic Appendectomy - Dmitry Vogt MD, FACS Surgeon Dmitry Vogt MD, FACS Mail Opener Nallely Moreland Estimated Blood Loss 10 Findings Consistent with Post-Op Diagnosis Specimens Specimen Description: Permanent specimen A: appendix
[2020-05-27] MEDS ORDERED: ACETAMINOPHEN 1000 MG/100 ML IV IV ONE (13:41)
--- NOTE | 2020-05-27 13:41 | Operative Report (OR) ---
DATE OF OPERATION: 05/27/2020 NAME OF OPERATION: Laparoscopic appendectomy. PREOPERATIVE DIAGNOSIS: Appendicitis. POSTOPERATIVE DIAGNOSIS: Abnormal appendix, possible mucocele. STAFF SURGEON: Dmitry Vogt MD. [employer] DRILLING MACHINE OPERATOR: Mckayla Moreland PA-C. ANESTHESIA: General. DESCRIPTION OF PROCEDURE: The patient was brought in the operating room and placed on the operating table in supine position. Her abdomen was prepped and draped in usual fashion. Pneumatic stockings and orogastric tube were placed. My residential living assistant helped with prepping, draping, removal of the appendix and closure of the wounds. 0.5% plain Marcaine was used to anesthetize all incisions. Incision was made above the umbilicus, carrying dissection down, placing a Veress needle through the fascia producing pneumoperitoneum. An 11 mm port placed at this site. Under visualization, a second 5 mm port was placed suprapubically and then a 12 mm port placed in the left lower quadrant. On inspection, the patient's appendix was very large. It did not appear to be significantly inflamed. I was concerned about a mucocele. The base of the appendix was transected using an Endo DENISE stapler, then the mesoappendix transected using an Endo-DENISE stapler. Appendix was placed in an Endobag and then removed. The site was irrigated. Hemostasis was maintained. All ports were removed. The 12 mm and 11 mm sites closed using 0 Vicryl for the fascia. Skin reapproximated using subcuticular 4-0 Monocryl, Dermabond at the umbilicus and suprapubic area and Steri-Strips in the left lower quadrant. The patient was transferred to recovery room in stable condition. I attest to the content of the Intraoperative Record and any orders documented therein. Any exception s are noted below.
--- NOTE | 2020-05-27 14:15 | Anesthesiology Progress Note ---
Date of Service May 27, 2020 Anesthesia Post Procedure Vital Signs Vital Signs: Temp Pulse Pulse Pulse Resp BP BP 05/27/20 14:10 36.7 C 55 L 17 129/74 05/27/20 14:00 50 L 13 128/79 05/27/20 13:50 53 L 14 140/79 05/27/20 13:40 51 L 13 126/79 05/27/20 13:32 36.7 C 56 L 14 139/87 05/27/20 12:02 36.8 C 60 20 186/100 H 05/27/20 11:02 05/27/20 09:56 36.8 C 83 18 174/105 H Pulse Ox 05/27/20 14:10 98 05/27/20 14:00 97 05/27/20 13:50 95 05/27/20 13:40 100 05/27/20 13:32 100 05/27/20 12:02 99 05/27/20 11:02 95 05/27/20 09:56 97 Pain Intensity Back: Pain Intensity: 3 Abdomen: Pain Intensity: 3 Transfer of Care Handoff Completed per policy Notes Mental Status: alert / awake / arousable Patient Amnestic to Procedure: Yes Nausea / Vomiting: adequately controlled Pain: adequately controlled Airway Patency, RR, SpO2: stable & adequate BP & HR: stable & adequate Hydration State: stable & adequate Anesthetic Complications: no major complications apparent and Pt Satisfied with anesthetic care Notes: The patient is awake and comfortable. Her blood pressure is now normotensive.
[2020-05-27] MEDS ORDERED: PROMETHAZINE HCL 12.5 MG in SODIUM CHLORIDE 0.9% 50 ML IV PRN (14:46)
[2020-05-27] MEDS ORDERED: LORazepam 0.5 MG/1 ML VIAL IV PRN (14:46)
[2020-05-27] MEDS ORDERED: ACETAMINOPHEN 325 MG TAB PO PRN (14:46)
[2020-05-27] MEDS ORDERED: PROMETHAZINE HCL 25 MG in SODIUM CHLORIDE 0.9% 50 ML IV PRN (14:46)
[2020-05-27] MEDS ORDERED: HYDROCODONE/ACETAMOPHEN 5/325MG TAB PO PRN ×2 (14:46)
[2020-05-27] MEDS ORDERED: HYDROmorphone INJ 0.5 MG/0.5 ML SYR IV PRN (14:46)
[2020-05-27] MEDS ORDERED: SODIUM CHLORIDE 0.9% 1000ML 1,000 ML IV SCH (15:15)
--- NOTE | 2020-05-27 17:15 | Hospitalist Consultation ---
Date of Consultation May 27, 2020 Assessment & Plan (1) Hypertension: Rosemarie is a 59-year-old female with a past medical history of chronic back pain, tobacco abuse, kidney stones, non-Hodgkin's lymphoma, and recent appendectomy who presents as a medical consult for hypertension. Hypertension Blood pressure currently 139/79 Patient with intermittent hypertension in the past, patient reports her normal home blood pressure is approximately 130/80 Has annual follow-up with her PCP per patient Suspect mild increase in baseline blood pressure in the setting of sympathetic drive postoperatively, in addition to hospitalization and with teen post appendectomy pain Do not recommend addition of an antihypertensive to her outpatient regimen unless she sustains blood pressures over 180/100 across multiple readings. Risks/harms analysis of initiation of antihypertensives in the inpatient setting are consistent with more harms unless this criteria is met. Follow clinically at this time. She is clinically asymptomatic at time of assessment. Discussed with patient that she is at elevated risk for heart attack and stroke if she were to continue to have untreated high blood pressure, especially since she continues to use tobacco products. Patient expresses understanding of this, and will follow-up with her outpatient provider. If she continues to have outpatient measurements in the hypertensive range will recommend addition of either a thiazide or calcium channel henrik as outpatient. Tobacco abuse Tobacco abuse counseling provided. Patient is an active smoker, pre- contemplative Recommend follow-up as outpatient for regular check in of if and when she is ready to become tobacco free Acute appendicitis status post cholecystectomy Per primary team Will sign off at this time, but are available with any questions or if the patient has a clinical change or sustained hypertension. (2) Smoker: (3) Appendicitis: Supervising Physician Co-Signing Physician Notes Attending Attestation & Consultation Note: Pt seen/examined, chart reviewed, consult care plan d/w PGY 3 Dr Agapito Michaels. I agree w/ the condon components of his documentation. 59yo female with long-time tobacco dependence and prior NHL who underwent laparoscopic appendectomy today. Initially thought to have appendicitis on CT but grossly during the surgery it appears that she may have had a mucocele. We were consulted by the surgical service because of elevated BPs. Patient reports borderline elevated BPs for many years but has never been on BP meds. PMH, PSH, allergies, meds, sochx, famhx - reviewed BPs - variable - some systolics >180, others 130s other vitals stable gen - NAD mouth - MMM neck - no JVD heart - RRR, s1 s2, no murmur lungs - cta b/l abd - soft NT ND BS+ ext - no edema skin - abd wall incisions clean CT abd/pelvis reviewed labs reviewed A/P: s/p appendectomy - ?mucocele - await path. h/o NHL. tobacco dependence. elevated BP w/o dx of HTN -- agree with Dr Michaels to simply follow BPs. Will not institute antihypertensives at this time. we discussed in detail the factors that can raise BPs in hospital - pain, anxiety, improper cuff size, etc. What will be most important are ambulatory readings at home. Encouraged her to purchase BP cuff for home use. Check daily BPs. f/u with PCP for this. Agree would only institute meds if systolic BPs are sustained over 180 while hospitalized. Thank you for the consult. Will follow. Kain Mesa MD History of Present Illness Reason for Consultation: Hypertension Requesting Physician: Dmitry Vogt MD, FACS Attending Physician: Dmitry Vogt MD, FACS History of Present Illness Rosemarie is a 59-year-old female with a past medical history of chronic back pain, tobacco abuse, kidney stones, non-Hodgkin's lymphoma, and recent appendectomy who presents as a medical consult for hypertension. Rosemarie reports that she has "flirted with high blood pressure in the past", but follows with her outpatient provider Dr. Schmitt yearly and have chosen to defer antihypertensives so far. She reports her normal blood pressure is approximately 130/80. She has never been on treatment for high blood pressure. She does not have a family history of IA. Her mother had a TIA and dementia and old age. MGM with type 2 diabetes, no personal or first-degree family history of diabetes. She is a 1 pack/day cigarette user for approximately 20 years. She has not had any chest pain, chest pressure, palpitations, lightheadedness, dizziness, syncope, presyncope, numbness, tingling, or headaches in the last several months. She reports chronic back pain which is what brought her in to the hospital where she was found to have acute appendicitis requiring lap appendectomy. At time of assessment she reports her pain is "much better ". Does not have a history of sleep apnea, and feels rested when she wakes up in the mornings. Denies vision change. She has a history of kidney stones, but has not had any episodes of YDAIEL or elevated kidney numbers on annual blood work. Medical history: Reviewed Surgical history: Reviewed Medications: No home medications Allergies: Sulfa Social: She lives at home alone, previously lived with her father who 1 year ago. Ambulates well with no difficulties at home. No recent sick contacts. Allergies Allergy/AdvReac Type Severity Reaction Status Date / Time chlorpheniramine Allergy Severe lips swell Verified 05/27/20 12:00 Sulfa (Sulfonamide Allergy Unknown 'entire Verified 05/27/20 12:00 Antibiotics) body swollen and red minus throat' meperidine [From Demerol] AdvReac Severe sick Unverified 05/27/20 12:00 Home Medications Home Medications Medication Instructions Recorded Confirmed Type amoxicillin-pot clavulanate 1 tab PO BID #14 tab 05/26/20 05/27/20 Rx [Augmentin] hydrocodone-acetaminophen 1 - 2 tab PO Q6H PRN #10 tab 05/28/20 Rx Patient History Medical History Hypertension not treated Kidney stone Lymphadenopathy Non-Hodgkin's lymphoma (09/19/12) Smoker Surgical History (Updated 05/27/20 @ 16:58 by Sherrill Tellez RN) S/P laparoscopic appendectomy (05/27/20) Laparoscopic appendectomy. 05/27/20 Dr. Vogt Family History (Updated 05/28/20 @ 08:05 by Kain Mesa) Mother Dementia TIA (transient ischemic attack) Social History Smoking Status: Current every day smoker Tobacco Type: Cigarettes Hx Alcohol Use: Yes Hx Substance Use: No Preferred Language: Macedonian Communication Ability: Effective Nursery Hand Required: No Beliefs That Will Affect Care: None Current Living Situation: Family Feels Safe at Home: Yes Assistive Devices: None Review of Systems Review of Systems: Constitutional: Denies fever, chills, malaise, weight change Eyes: Denies double vision, vision change, eye pain Cardiovascular: Denies Chest pain, chest pressure, palpitations, extremity swelling Respiratory: Denies shortness of breath, cough, sputum production, difficulty breathing Gastrointestinal: Endorses right lower abdominal pain prior to admission, currently improved. Otherwise denies abdominal pain, nausea, vomiting, constipation, diarrhea Genitourinary: Denies pain with urination, urinary urgency, urinary frequency Musculoskeletal: Denies weakness. Endorses back pain as noted in HPI, currently improved. Integumentary:Denies rash, lesions, bruising Neurological: Denies headache, numbness, tingling, focal weakness Physical Exam Physical Exam: General: A&Ox3. NAD. Cooperative. HEENT: Atraumatic, normocephalic. PERRLA. EOM intact. Visual acuity grossly intact, hearing grossly intact. Pulm: CTAB A&P. -wheezes, -rales, -rhonchi. Symmetrical chest rise. No increase work of breathing. No respiratory distress. Cardiac: RRR, -mrg. Radial pulses intact and symmetrical. No carotid bruits. Abdominal: Nontender, nondistended, soft. BS present. Extremity: Warm, dry. Moving all extremities equally. Radial pulses intact bilaterally, PT pulses intact bilaterally. Results & Data Results & Data ([facility]) Vital Signs (Past 12 Hours) Vital Signs Temp Pulse Pulse Pulse Resp BP BP 05/27/20 15:47 36.5 C 54 L 18 139/79 05/27/20 14:35 36.4 C L 53 L 18 146/81 H 05/27/20 14:10 36.7 C 55 L 17 129/74 05/27/20 14:00 50 L 13 128/79 05/27/20 13:50 53 L 14 140/79 05/27/20 13:40 51 L 13 126/79 05/27/20 13:32 36.7 C 56 L 14 139/87 05/27/20 12:02 36.8 C 60 20 186/100 H 05/27/20 11:02 05/27/20 09:56 36.8 C 83 18 174/105 H Pulse Ox 05/27/20 15:47 98 05/27/20 14:35 98 05/27/20 14:10 98 05/27/20 14:00 97 05/27/20 13:50 95 05/27/20 13:40 100 05/27/20 13:32 100 05/27/20 12:02 99 05/27/20 11:02 95 05/27/20 09:56 97 Resident Activity Tracking Resident Involvement: Resident Care Provided Care Provided: Adult Hospital Medicine (1) Appendicitis Acute appendicitis type: unspecified acute appendicitis type Appendicitis type: acute appendicitis Qualified Code(s): K35.80 - Unspecified acute appendicitis
--- NOTE | 2020-05-27 23:42 | Billing Data ---
Date of Service May 27, 2020 Coding Level of Care Code 63501 Office/OBS Consult Lvl 2
[2020-05-28 06:02] LABS: Basophils # (auto) 0.01 K/uL (0-0.2); Basophils % (auto) 0.1 %; Eosinophils # (auto) 0.01 K/uL (0-0.5); Eosinophils % (auto) 0.1 %; Hematocrit (blood only) 39.3 % (37-47); Hemoglobin 12.9 g/dL (12.0-16.0); Immature Granulocytes # (auto) 0.03 K/uL (0.00-0.02); Immature Granulocytes % (auto) 0.3 %; Lymphocytes # (auto) 1.73 K/uL (1.2-3.4); Lymphocytes % (auto) 14.9 %; Mean Corpuscular Hgb Conc 32.8 g/dL (32-36); Mean Corpuscular Volume 91.4 fL (80-100); Mean Platelet Volume 10.1 fL (7.4-10.4); Monocytes # (auto) 0.83 K/uL (0.11-0.59); Monocytes % (auto) 7.1 %; Neutrophils % (auto) 77.5 %; Platelet Count 255 K/uL (130-400); RDW Coefficient of Variation 14.1 % (11.5-14.5); RDW Standard Deviation 46.5 fL (36.4-46.3); White Blood Count 11.61 K/uL (4.8-10.8)
--- NOTE | 2020-05-28 06:08 | Electrocardiogram Report ---
Test Reason : Blood Pressure : / mmHG Vent. Rate : 056 BPM Atrial Rate : 056 BPM P-R Int : 146 ms QRS Dur : 082 ms QT Int : 432 ms P-R-T Axes : 055 014 042 degrees QTc Int : 416 ms Sinus bradycardia Minimal voltage criteria for LVH, may be normal variant Nonspecific ST abnormality Abnormal ECG When compared with ECG of 05-JUN-2016 07:04, No significant change was found Confirmed by Christopher Bowden ([id number]) on 05/27/2020 5:08:28 PM Referred By: REFERRED SELF Confirmed By:Orlando Bowden
[2020-05-28 06:18] LABS: Appearance Urine Clear (Clear); Bacteria Urine Automated Negative (Negative); Bilirubin Urine Negative (Negative); Blood Urine 1+ (Negative); Color Urine Yellow; Glucose Urine UA Negative (Negative); Ketones Urine Negative (Negative); Leukocyte Esterase Urine Negative (Negative); Nitrite Urine Negative (Negative); Protein Urine Negative (Negative); RBC Urine Automated 0-4 /hpf (0-4); Specific Gravity Urine 1.012 (1.000-1.030); Urobilinogen Urine Negative (Negative)
[2020-05-28 06:29] LABS: Albumin Level 2.9 gm/dl (3.4-5.0); BUN Creatinine Ratio 13.4 (10-20); Calcium 8.4 mg/dl (8.5-10.1); Creatinine Clr Calc Pharmacy 81.8 ml/min; Est GFR (African American) 84.5; Est GFR (Non-African American) 72.9
[2020-05-28 06:31] LABS: Bilirubin,Total 0.4 mg/dl (0.2-1); Phosphorus 3.1 mg/dl (2.5-4.9); Total Protein 5.9 gm/dl (6.4-8.2)
--- NOTE | 2020-05-30 10:56 | Discharge Summary ---
Date of Service May 30, 2020 Admission HPI Per Admitting Provider This is a 59y F with a PMH of non-hodgkins lymphoma who returns to the ED today after evaluation for back pain yesterday with a CT scan showed concern for appendicitis. Yesterday in the ER the patient's abdominal exam was benign and had no clear symptoms that correlated with appendicitis at the time. She was provided options and requested to be discharged from the ED on a course of antibiotics with plans to call our office today for an update. The patient states she had a very difficult time getting ahold of someone in the outpatient office, so she decided to return to the ED. She reports her back pain has comp letely resolved, but she has noticed some more fatigue, bloating, and some twinges of pain in her abdomen since discharge. She last ate yesterday around 9:30pm. She denies any nausea/vomiting, fevers/chills, or change in bowel habits. Principal Diagnosis s/p laparoscopic appendectomy Discharge Exam awake/alert Gastrointestinal (Abdomen) Inspection/Auscultation: + abdominal surgical incision (c/d/i) Percussion/Palpation: abdomen soft Discharge Data Allergies Allergy/AdvReac Type Severity Reaction Status Date / Time chlorpheniramine Allergy Severe lips swell Verified 05/27/20 12:00 Sulfa (Sulfonamide Allergy Unknown 'entire Verified 05/27/20 12:00 Antibiotics) body swollen and red minus throat' meperidine [From Demerol] AdvReac Severe sick Unverified 05/27/20 12:00 Consultations 05/27/20 11:02 ED Decision to Admit Stat 05/27/20 14:46 Consult Hospitalist Routine Procedures Performed Operation Date: 05/27/20 07:50 Actual Procedures p Laparoscopic Appendectomy - Dmitry Vogt MD, [place] [facility] Course (1) S/P laparoscopic appendectomy: This is a 59y F with a PMH of non-hodgkins lymphoma who returned to the ED on 05/27/20 after evaluation for back pain the day prior with a CT scan showed concern for appendicitis. She was ultimately discharged from the ED on a course of abx with plans for close follow up the following day. Unfortunately, the patient reported increased abdominal bloating, twinges of pain, and more fatigue prompting her to return for further evaluation. Due to worsening symptoms and CT findings concerning for appendicitis decision was made to take her to the OR. Patient underwent laparoscopic appendectomy with Dr. Vogt on 05/27/20. Patient t olerated the procedure well, see op note for full details. She recovered in the PACU and was transferred to the med/surg floor in stable condition for overnight observation. The hospitalist service was consulted to follow during her stay for an evaluation of hypertension. No new medications were started for her regarding this and was asked to follow up with her PCP. Patient's diet was advanced as tolerated, pain was controlled with prn medication, and she was voiding and ambulating independently. Incisions c/d/i. On POD#1 she was deemed stable for discharge to home. She was provided discharge instructions and was asked to follow up in clinic with Dr. Vogt within 1-2 weeks. Total Time Total Time Spent Total Time Spent (In Minutes): 15 Discharge Plan Discharge Items Patient Disposition: Home - Self-Care Reason For Visit: ABNORMAL APPENDIX Discharge Diagnosis: laparoscopic appendectomy Activity: Per Instructions section Activity Comment: light activity for 4 weeks Lifting: No more than 10 pounds Lifting Comment: For 3 weeks Bathing Comment: may shower; no soaking in tubs/pools Sexual Activity: When tolerated Exercise/Sports: Wait until after follow-up appointment Exercise Comment: light activity for 3 weeks Driving/Machine Use: Resume 3 days after discharge Non-emergency contact: Primary Care Provider and Surgeon Call non-emergency contact if: you have any medication questions, your symptoms worsen, your pain is not controlled, your pain is worsening, you have a fever, your temperature is above 101.5, your wound has increased redness, your wound has increased drainage and your wound pain has increased Follow-up/Referrals: Dmitry Vogt MD, FACS [Physician] - 06/10/20 11:00 am Honorio Schmitt MD [Primary Care Provider] - Diet: Regular Addtl Attending Provider Instructions: SPECIAL CARE INSTRUCTIONS: * Cover incisions and change daily for comfort/drainage. * May use ibuprofen for pain as tolerated. * Expect some swelling and bruising. Call your doctor if: * Temperature above 101 degrees * Pain not relieved by pain medicine ordered * There is increased drainage or redness from any incision * You have any unanswered questions or concerns [phone]. FOLLOW UP VISIT: If not already scheduled, please call the office for a follow-up visit. For 2 weekscheckup OFFICE PHONE NUMBER: Dr. Vogt Office Pending Studies at Discharge: Yes Studies:: surgical pathology Stand-Alone Forms: My [facility], Smoking Cessation Medications and DC Order Prescriptions: New hydrocodone-acetaminophen 5-325 mg tablet 1 - 2 tab PO Q6H PRN (Reason: pain) Qty: 10 RF: 0 Discontinued amoxicillin-pot clavulanate [Augmentin] 875-125 mg tablet 1 tab PO BID Qty: 14 RF: 0 Discharge Orders: Discharge Order (Routine); Ordered 05/28/20 Ordered By: Dmitry Vogt Admission Data Admit Date/Time: 05/27/20 13:20 Attending Provider: Dmitry Vogt Admit Provider: Dmitry Vogt Primary Care Provider: Honorio Schmitt Other Providers: Dmitry Vogt ; Jasmeet Gardner Other Interventions: Discharge Summary Assessment (RN) Last Done: 05/28/20 09:09 Coding Level of Care Code D/C Day Management <30 mins Diagnoses S/P laparoscopic appendectomy Z90.49
== END 2020-05-28 09:45 | disposition home or self-care (01) ==
LOC: 3N 09:42 → ED 09:42 → 3N 11:49